=== PATIENT | male | born 1990 | race Caucasian/White ===

== ENCOUNTER 2022-06-18 08:28 | Emergency (ER) | payer OTHER ==
[2022-06-18 09:11] VITALS: BP 117/70; PULSE 48; RESP 16; TEMP 97.5; BMI 28.0
== END 2022-06-18 09:46 | disposition home or self-care (01) ==
LOC: FER 08:28
DX: S93.491A Sprain of other ligament of right ankle, initial encounter (principal); S93.601A Unspecified sprain of right foot, initial encounter; X58.XXXA Exposure to other specified factors, initial encounter; Y93.67 Activity, basketball
CPT/HCPCS: 73610-TC-RT-FY; 73630-TC-RT-FY; 99283-25